=== PATIENT | male | born 1990 | race Caucasian/White ===

== ENCOUNTER 2024-04-23 20:50 | Emergency (ER) | payer OTHER ==
[2024-04-23 20:54] VITALS: BP 125/80; PULSE 74; RESP 18; TEMP 98; BMI 25.0
[2024-04-23] MEDS ORDERED: LIDOCAINE HCL 1%, 10 MG/ML (20ML VIAL) ONE (21:12)
[2024-04-23] MEDS ORDERED: IBUPROFEN 600 MG TABLET (FP) PO ONE (21:52)
[2024-04-23] MEDS: LIDOCAINE HCL 1%, 10 MG/ML (50 mL VIAL) SQ ONE (21:53)
[2024-04-23] MEDS: IBUPROFEN 600 MG TABLET (FP) PO ONE (21:54)
== END 2024-04-23 21:55 | disposition home or self-care (01) ==
LOC: JERFT 20:50
DX: S61.211A Laceration without foreign body of left index finger without damage to nail, initial encounter (principal); X58.XXXA Exposure to other specified factors, initial encounter
CPT/HCPCS: 99283-25